=== PATIENT | male | born 1990 | race Two or more races ===

== ENCOUNTER 2021-04-08 15:29 | Inpatient (IN) | payer OTHER ==
[2021-04-08 16:40] VITALS: BMI 20.5
[2021-04-08] MEDS ORDERED: METHOCARBAMOL 500 MG TABLET PO PRN (20:23)
[2021-04-08] MEDS ORDERED: ACETAMINOPHEN 325 MG TABLET (FP) PO PRN ×2 (20:23)
[2021-04-08] MEDS ORDERED: LORazepam 1 MG TABLET PO PRN (20:23)
[2021-04-08] MEDS ORDERED: NICOTINE POLACRILEX 2 MG GUM BUC PRN (20:23)
[2021-04-08] MEDS ORDERED: MAG HYDROX/AL HYDROX/SIMETH 30 ML UNIT-DOSE CUP PO PRN (20:23)
[2021-04-08] MEDS ORDERED: MAGNESIUM CITRATE 300 ML BOTTLE PO PRN (20:23)
[2021-04-08] MEDS ORDERED: MAGNESIUM HYDROX 2400MG/30ML ORAL SUSPENSION 30 ML CUP PO PRN (20:23)
[2021-04-08] MEDS ORDERED: BISMUTH SUBSALICYLATE 524 MG/30 ML PO PRN (20:23)
[2021-04-08] MEDS ORDERED: ONDANSETRON *ODT* 4 MG TABLET SL PRN (20:23)
[2021-04-08] MEDS ORDERED: IBUPROFEN 400 MG TABLET (FP) PO PRN (20:23)
[2021-04-08] MEDS ORDERED: MENTHOL/PHENOL 1 EACH UD MM PRN (20:23)
[2021-04-08] MEDS ORDERED: cloNIDine HCL 0.1 MG TABLET PO PRN (20:29)
[2021-04-08] MEDS ORDERED: METHADONE HCL 10 MG TABLET (FOR DETOX USE ONLY) PO ONE (20:29)
[2021-04-08] MEDS: hydrOXYzine PAMOATE 25 MG CAPSULE (FP) PO SCH (21:12)
[2021-04-08] MEDS: MELATONIN 5 MG TABLETS PO SCH (22:25)
[2021-04-08] MEDS: LORazepam 2 MG TABLET PO SCH (22:25)
[2021-04-08] MEDS: THIAMINE HCL 100 MG TABLET (FP) PO SCH (22:25)
[2021-04-08] MEDS: QUEtiapine FUMARATE 50 MG TABLET PO SCH (22:25)
[2021-04-09] MEDS: LORazepam 2 MG TABLET PO SCH ×4 (06:44→22:38)
[2021-04-09] MEDS: hydrOXYzine PAMOATE 25 MG CAPSULE (FP) PO SCH ×5 (07:31→22:37)
[2021-04-09] MEDS ORDERED: METHADONE HCL 5 MG TABLET (FOR DETOX USE ONLY) ONE (09:18)
[2021-04-09] MEDS ORDERED: METHADONE HCL 10 MG TABLET (FOR DETOX USE ONLY) ONE (09:18)
[2021-04-09] MEDS ORDERED: METHADONE (DETOX) 20 MG, METHADONE (DETOX) 5 MG PO ONE (10:00)
[2021-04-09 10:53] LABS: ALBUMIN 4.1 g/dl (3.4-5.0); BLOOD UREA NITROGEN 9.2 mg/dL (7-18); CALCIUM 9.8 mg/dL (8.5-10.1)
[2021-04-09 10:56] LABS: CREATININE 0.7 mg/dL (0.55-1.3)
[2021-04-09 10:57] LABS: BILIRUBIN,TOTAL 0.7 mg/dL (0.2-1); TOT PROT 7.2 g/dl (6.4-8.2)
[2021-04-09 11:08] LABS: HEMATOCRIT 44.9 % (35.4-49); HEMOGLOBIN 14.7 GM/dL (11.7-16.9); MCH 26.9 pg (25.7-33.7); MCHC 32.8 g/dl (32.0-35.9); MEAN CELL VOLUME 82.1 fl (80-96); MEAN PLT VOLUME 8.1 fl (7.5-11.1); PLATELET COUNT 262 10^3/uL (134-434); RBC 5.47 M/mm3 (4.00-5.60); RDW 14.8 % (11.9-15.9)
[2021-04-09] MEDS: NICOTINE 14 MG/24 HOURS TOPICAL PATCH TD SCH (11:16)
[2021-04-09] MEDS: PRENATAL VITAMINS W/ FOLIC ACID TABLET (FP) PO SCH (11:16)
[2021-04-09] MEDS: MELATONIN 5 MG TABLETS PO SCH (22:37)
[2021-04-09] MEDS: THIAMINE HCL 100 MG TABLET (FP) PO SCH (22:37)
[2021-04-09] MEDS: QUEtiapine FUMARATE 50 MG TABLET PO SCH (22:37)
[2021-04-10] MEDS: LORazepam 1 MG TABLET PO SCH ×4 (06:31→23:13)
[2021-04-10] MEDS: hydrOXYzine PAMOATE 25 MG CAPSULE (FP) PO SCH ×5 (06:32→23:14)
[2021-04-10] MEDS ORDERED: METHADONE HCL 10 MG TABLET (FOR DETOX USE ONLY) PO ONE (10:00)
[2021-04-10] MEDS: PRENATAL VITAMINS W/ FOLIC ACID TABLET (FP) PO SCH (11:33)
[2021-04-10] MEDS: NICOTINE 14 MG/24 HOURS TOPICAL PATCH TD SCH (11:33)
[2021-04-10] MEDS: QUEtiapine FUMARATE 50 MG TABLET PO SCH (23:13)
[2021-04-10] MEDS: MELATONIN 5 MG TABLETS PO SCH (23:13)
[2021-04-10] MEDS: GABAPENTIN 300 MG CAPSULE PO PRN (23:13)
[2021-04-10] MEDS: traZODone HCL 50 MG TABLET (FP) PO SCH (23:13)
[2021-04-10] MEDS: THIAMINE HCL 100 MG TABLET (FP) PO SCH (23:14)
[2021-04-11] MEDS ORDERED: LORazepam 0.5 MG TABLET PO PRN
[2021-04-11] MEDS: LORazepam 0.5 MG TABLET PO SCH ×4 (06:11→22:35)
[2021-04-11] MEDS: hydrOXYzine PAMOATE 25 MG CAPSULE (FP) PO SCH ×5 (06:11→22:35)
[2021-04-11] MEDS ORDERED: METHADONE HCL 5 MG TABLET (FOR DETOX USE ONLY) ONE (09:07)
[2021-04-11] MEDS ORDERED: METHADONE HCL 10 MG TABLET (FOR DETOX USE ONLY) ONE (09:07)
[2021-04-11] MEDS ORDERED: METHADONE (DETOX) 10 MG, METHADONE (DETOX) 5 MG PO ONE (10:00)
[2021-04-11] MEDS: PRENATAL VITAMINS W/ FOLIC ACID TABLET (FP) PO SCH (10:31)
[2021-04-11] MEDS: NICOTINE 14 MG/24 HOURS TOPICAL PATCH TD SCH (10:33)
[2021-04-11] MEDS: traZODone HCL 50 MG TABLET (FP) PO SCH (22:35)
[2021-04-11] MEDS: GABAPENTIN 300 MG CAPSULE PO PRN (22:36)
[2021-04-11] MEDS: MELATONIN 5 MG TABLETS PO SCH (22:36)
[2021-04-11] MEDS: QUEtiapine FUMARATE 50 MG TABLET PO SCH (22:36)
[2021-04-11] MEDS: THIAMINE HCL 100 MG TABLET (FP) PO SCH (22:36)
[2021-04-12] MEDS ORDERED: LORazepam 0.5 MG TABLET PO ONE (05:00)
[2021-04-12] MEDS: hydrOXYzine PAMOATE 25 MG CAPSULE (FP) PO SCH (06:59)
[2021-04-12 09:05] VITALS: BP 106/65; PULSE 95; TEMP 97.3
[2021-04-12] MEDS ORDERED: METHADONE HCL 10 MG TABLET (FOR DETOX USE ONLY) PO ONE (10:00)
[2021-04-13] MEDS ORDERED: METHADONE HCL 5 MG TABLET (FOR DETOX USE ONLY) PO ONE (06:00)
== END 2021-04-12 10:19 | disposition home or self-care (01) | DRG 773 ==
LOC: YASAS 15:29 → Y3N 20:27
PROVIDERS: ADMIT Allergy & Immunology; ATTEND Allergy & Immunology
PROC: HZ2ZZZZ Detoxification Services for Substance Abuse Treatment (ICD-10-PCS; principal; 2021-04-08)
DX: F10.230 Alcohol dependence with withdrawal, uncomplicated (principal); F11.23 Opioid dependence with withdrawal; F13.230 Sedative, hypnotic or anxiolytic dependence with withdrawal, uncomplicated; F17.210 Nicotine dependence, cigarettes, uncomplicated; G62.9 Polyneuropathy, unspecified; G47.00 Insomnia, unspecified; R63.4 Abnormal weight loss; Z68.20 Body mass index [BMI] 20.0-20.9, adult; Z87.828 Personal history of other (healed) physical injury and trauma; Z94.5 Skin transplant status
CPT/HCPCS: 36415; 80053; 85027; 86780; C9803; U0003; U0005

== ENCOUNTER 2021-05-21 09:46 | Inpatient (IN) | payer OTHER ==
[2021-05-21] MEDS ORDERED: MAG HYDROX/AL HYDROX/SIMETH 30 ML UNIT-DOSE CUP PO PRN (16:13)
[2021-05-21] MEDS ORDERED: NICOTINE 10 MG CARTRIDGE (INHALER) IH PRN (16:13)
[2021-05-21] MEDS ORDERED: NICOTINE POLACRILEX 2 MG GUM BUC PRN (16:13)
[2021-05-21] MEDS ORDERED: METHOCARBAMOL 500 MG TABLET PO PRN (16:13)
[2021-05-21] MEDS ORDERED: MENTHOL/PHENOL 1 EACH UD MM PRN (16:13)
[2021-05-21] MEDS ORDERED: clonazePAM 0.5 MG ODT TABLETS SL PRN (16:13)
[2021-05-21] MEDS ORDERED: NALOXONE HCL 0.4 MG/ML VIAL IM PRN (16:13)
[2021-05-21] MEDS ORDERED: IBUPROFEN 400 MG TABLET (FP) PO PRN (16:13)
[2021-05-21] MEDS ORDERED: MAGNESIUM CITRATE 300 ML BOTTLE PO PRN (16:13)
[2021-05-21] MEDS ORDERED: MAGNESIUM HYDROX 2400MG/30ML ORAL SUSPENSION 30 ML CUP PO PRN (16:13)
[2021-05-21] MEDS ORDERED: methaDONE HCL 10 MG TABLET (FOR DETOX USE ONLY) PO ONE (16:13)
[2021-05-21] MEDS ORDERED: cloNIDine HCL 0.1 MG TABLET PO PRN (16:13)
[2021-05-21] MEDS ORDERED: ACETAMINOPHEN 325 MG TABLET (FP) PO PRN ×2 (16:13)
[2021-05-21] MEDS ORDERED: BISMUTH SUBSALICYLATE 524 MG/30 ML PO PRN (16:13)
[2021-05-21] MEDS ORDERED: diazePAM 5 MG TABLET PO PRN (16:13)
[2021-05-21] MEDS: diazePAM 5 MG TABLET PO SCH ×2 (17:56→22:39)
[2021-05-21] MEDS ORDERED: QUEtiapine FUMARATE 50 MG TABLET PO ONE (22:00)
[2021-05-21] MEDS: GABAPENTIN 300 MG CAPSULE PO PRN (22:39)
[2021-05-21] MEDS: MELATONIN 5 MG TABLETS PO SCH (22:40)
[2021-05-21] MEDS: THIAMINE HCL 100 MG TABLET (FP) PO SCH (22:40)
[2021-05-22] MEDS: diazePAM 5 MG TABLET PO SCH ×4 (07:38→22:32)
[2021-05-22] MEDS ORDERED: methaDONE HCL 10 MG TABLET (FOR DETOX USE ONLY) ONE (08:46)
[2021-05-22] MEDS ORDERED: PRENATAL VITAMINS W/ FOLIC ACID TABLET (FP) PO SCH (10:00)
[2021-05-22 10:18] LABS: CALCIUM 8.7 mg/dL (8.5-10.1)
[2021-05-22 10:20] LABS: ALBUMIN 3.6 g/dl (3.4-5.0); BLOOD UREA NITROGEN 9.7 mg/dL (7-18)
[2021-05-22 10:23] LABS: CREATININE 0.6 mg/dL (0.55-1.3); HEMATOCRIT 45.6 % (35.4-49); HEMOGLOBIN 15.2 GM/dL (11.7-16.9); MCH 27.4 pg (25.7-33.7); MCHC 33.2 g/dl (32.0-35.9); MEAN CELL VOLUME 82.3 fl (80-96); MEAN PLT VOLUME 7.9 fl (7.5-11.1); PLATELET COUNT 206 10^3/uL (134-434); RBC 5.54 M/mm3 (4.00-5.60); RDW 14.5 % (11.9-15.9); WHITE BLOOD COUNT 2.7 K/mm3 (4.0-10.0)
[2021-05-22 10:25] LABS: BILIRUBIN,TOTAL 0.4 mg/dL (0.2-1); TOT PROT 6.9 g/dl (6.4-8.2)
[2021-05-22] MEDS ORDERED: QUEtiapine FUMARATE 25 MG TABLET PO SCH (22:00)
[2021-05-22 22:06] VITALS: TEMP 96.9
[2021-05-22] MEDS: MELATONIN 5 MG TABLETS PO SCH (22:33)
[2021-05-22] MEDS: THIAMINE HCL 100 MG TABLET (FP) PO SCH (22:33)
[2021-05-22] MEDS: GABAPENTIN 300 MG CAPSULE PO PRN (22:33)
[2021-05-23 05:54] VITALS: BP 104/67; PULSE 57
[2021-05-23] MEDS ORDERED: diazePAM 5 MG TABLET PO SCH (06:00)
[2021-05-23] MEDS ORDERED: methaDONE HCL 10 MG TABLET (FOR DETOX USE ONLY) PO ONE (10:00)
[2021-05-24] MEDS ORDERED: diazePAM 5 MG TABLET PO SCH (06:00)
[2021-05-25] MEDS ORDERED: diazePAM 5 MG TABLET PO ONE (06:00)
[2021-05-25] MEDS ORDERED: methaDONE HCL 10 MG TABLET (FOR DETOX USE ONLY) PO ONE (10:00)
== END 2021-05-23 12:35 | disposition left against medical advice (07) | DRG 770 ==
LOC: YASAS 09:46 → Y3N 17:25
PROVIDERS: ADMIT Allergy & Immunology; ATTEND Allergy & Immunology
PROC: HZ2ZZZZ Detoxification Services for Substance Abuse Treatment (ICD-10-PCS; principal; 2021-05-21)
DX: F11.23 Opioid dependence with withdrawal (principal); F10.230 Alcohol dependence with withdrawal, uncomplicated; F13.230 Sedative, hypnotic or anxiolytic dependence with withdrawal, uncomplicated; F17.210 Nicotine dependence, cigarettes, uncomplicated; G47.00 Insomnia, unspecified; G62.9 Polyneuropathy, unspecified; T22.00XS Burn of unspecified degree of shoulder and upper limb, except wrist and hand, unspecified site, sequela; T31.0 Burns involving less than 10% of body surface; T79.8XXS Other early complications of trauma, sequela; W86.8XXS Exposure to other electric current, sequela; Z56.0 Unemployment, unspecified; Z59.0 Homelessness
CPT/HCPCS: 36415; 80053; 85027; 86780; C9803; U0003; U0005

== ENCOUNTER 2021-08-12 13:58 | Inpatient (IN) | payer OTHER ==
[~2021-08-12 13:58] MED LIST: PERMETHRIN 5% TOPICAL CREAM 60 GM TUBE TP ONE
[2021-08-12 14:16] VITALS: BMI 19.6
[2021-08-12] MEDS ORDERED: BISMUTH SUBSALICYLATE 524 MG/30 ML PO PRN (15:47)
[2021-08-12] MEDS ORDERED: diazePAM 5 MG TABLET PO PRN (15:47)
[2021-08-12] MEDS ORDERED: MAG HYDROX/AL HYDROX/SIMETH 30 ML UNIT-DOSE CUP PO PRN (15:47)
[2021-08-12] MEDS ORDERED: MAGNESIUM HYDROX 2400MG/30ML ORAL SUSPENSION 30 ML CUP PO PRN (15:47)
[2021-08-12] MEDS ORDERED: methaDONE HCL 10 MG TABLET (FOR DETOX USE ONLY) PO ONE (15:47)
[2021-08-12] MEDS ORDERED: IBUPROFEN 400 MG TABLET (FP) PO PRN (15:47)
[2021-08-12] MEDS ORDERED: MENTHOL/PHENOL 1 EACH UD MM PRN (15:47)
[2021-08-12] MEDS ORDERED: MAGNESIUM CITRATE 300 ML BOTTLE PO PRN (15:47)
[2021-08-12] MEDS ORDERED: ACETAMINOPHEN 325 MG TABLET (FP) PO PRN ×2 (15:47)
[2021-08-12] MEDS ORDERED: cloNIDine HCL 0.1 MG TABLET PO PRN (15:47)
[2021-08-12] MEDS ORDERED: NICOTINE 10 MG CARTRIDGE (INHALER) IH PRN (15:47)
[2021-08-12] MEDS ORDERED: PERMETHRIN 5% TOPICAL CREAM 60 GM TUBE TP ONE (16:14)
[2021-08-12] MEDS ORDERED: PERMETHRIN 5% TOPICAL CREAM 60 GM TUBE ONE (16:40)
[2021-08-12] MEDS ORDERED: PERMETHRIN (NIX CREAM SCALP RINSE) 59 ML 1% BOTTLE TP ONE (16:40)
[2021-08-12] MEDS: diazePAM 5 MG TABLET PO SCH ×3 (19:11→22:39)
[2021-08-12] MEDS: THIAMINE HCL 100 MG TABLET (FP) PO SCH (22:24)
[2021-08-12] MEDS: MELATONIN 5 MG TABLETS PO SCH ×2 (22:38→23:46)
[2021-08-13] MEDS: diazePAM 5 MG TABLET PO SCH ×4 (06:06→22:35)
[2021-08-13] MEDS ORDERED: methaDONE HCL 10 MG TABLET (FOR DETOX USE ONLY) ONE (08:43)
[2021-08-13] MEDS: PRENATAL VITAMINS W/ FOLIC ACID TABLET (FP) PO SCH (10:49)
[2021-08-13 11:33] LABS: HEMATOCRIT 45.3 % (35.4-49); HEMOGLOBIN 14.9 GM/dL (11.7-16.9); MCH 27.2 pg (25.7-33.7); MCHC 32.8 g/dl (32.0-35.9); MEAN PLT VOLUME 7.4 fl (7.5-11.1); PLATELET COUNT 292 10^3/uL (134-434); RBC 5.47 M/mm3 (4.00-5.60); RDW 14.6 % (11.9-15.9); WHITE BLOOD COUNT 3.2 K/mm3 (4.0-10.0)
[2021-08-13 12:08] LABS: BLOOD UREA NITROGEN 10.8 mg/dL (7-18); CALCIUM 8.9 mg/dL (8.5-10.1)
[2021-08-13 12:09] LABS: ALBUMIN 3.2 g/dl (3.4-5.0)
[2021-08-13 12:12] LABS: CREATININE 0.7 mg/dL (0.55-1.3)
[2021-08-13 12:13] LABS: BILIRUBIN,TOTAL 0.2 mg/dL (0.2-1); TOT PROT 6.5 g/dl (6.4-8.2)
[2021-08-13] MEDS: THIAMINE HCL 100 MG TABLET (FP) PO SCH (22:35)
[2021-08-13] MEDS: QUEtiapine FUMARATE 50 MG TABLET PO SCH (22:35)
[2021-08-13 23:33] VITALS: PULSE 70
[2021-08-14] MEDS: diazePAM 5 MG TABLET PO SCH ×2 (06:39→13:11)
[2021-08-14] MEDS ORDERED: methaDONE HCL 10 MG TABLET (FOR DETOX USE ONLY) PO ONE (10:00)
[2021-08-14] MEDS: PRENATAL VITAMINS W/ FOLIC ACID TABLET (FP) PO SCH (10:21)
[2021-08-14] MEDS: QUEtiapine FUMARATE 50 MG TABLET PO SCH (10:21)
[2021-08-14 10:53] VITALS: BP 101/63; TEMP 97
[2021-08-15] MEDS ORDERED: diazePAM 5 MG TABLET PO SCH (06:00)
[2021-08-16] MEDS ORDERED: diazePAM 5 MG TABLET PO ONE (06:00)
[2021-08-16] MEDS ORDERED: methaDONE HCL 10 MG TABLET (FOR DETOX USE ONLY) PO ONE (10:00)
== END 2021-08-14 14:25 | disposition left against medical advice (07) | DRG 770 ==
LOC: YASAS 13:58 → Y6N 18:17
PROVIDERS: ADMIT Allergy & Immunology; ATTEND Allergy & Immunology
DX: F11.23 Opioid dependence with withdrawal (principal); F10.230 Alcohol dependence with withdrawal, uncomplicated; F17.210 Nicotine dependence, cigarettes, uncomplicated; F41.9 Anxiety disorder, unspecified; F41.0 Panic disorder [episodic paroxysmal anxiety]; F19.24 Other psychoactive substance dependence with psychoactive substance-induced mood disorder; G47.00 Insomnia, unspecified; B85.1 Pediculosis due to Pediculus humanus corporis; D72.819 Decreased white blood cell count, unspecified; R73.9 Hyperglycemia, unspecified; Z87.828 Personal history of other (healed) physical injury and trauma; Z59.01 Sheltered homelessness; Z56.0 Unemployment, unspecified; Z94.5 Skin transplant status
CPT/HCPCS: 36415; 80053; 85027; 86780; C9803; U0003; U0005

== ENCOUNTER 2021-10-25 15:12 | Inpatient (IN) | payer OTHER ==
[2021-10-25] MEDS ORDERED: ACETAMINOPHEN 325 MG TABLET (FP) PO PRN ×2 (15:29)
[2021-10-25] MEDS ORDERED: BISMUTH SUBSALICYLATE 524 MG/30 ML PO PRN (15:29)
[2021-10-25] MEDS ORDERED: MAGNESIUM CITRATE 300 ML BOTTLE PO PRN (15:29)
[2021-10-25] MEDS ORDERED: METHOCARBAMOL 500 MG TABLET PO PRN (15:29)
[2021-10-25] MEDS ORDERED: MAGNESIUM HYDROX 2400MG/30ML ORAL SUSPENSION 30 ML CUP PO PRN (15:29)
[2021-10-25] MEDS ORDERED: MAG HYDROX/AL HYDROX/SIMETH 30 ML UNIT-DOSE CUP PO PRN (15:29)
[2021-10-25] MEDS ORDERED: MENTHOL/PHENOL 1 EACH UD MM PRN (15:29)
[2021-10-25] MEDS ORDERED: NICOTINE 10 MG CARTRIDGE (INHALER) IH PRN (15:29)
[2021-10-25] MEDS ORDERED: chlordiazePOXIDE HCL 25 MG CAPSULE PO PRN (15:29)
[2021-10-25] MEDS ORDERED: IBUPROFEN 400 MG TABLET (FP) PO PRN (15:29)
[2021-10-25] MEDS ORDERED: ONDANSETRON *ODT* 4 MG TABLET SL PRN (15:29)
[2021-10-25 18:54] VITALS: BMI 19.2
[2021-10-25] MEDS ORDERED: methaDONE HCL 10 MG TABLET PO ONE (20:00)
[2021-10-25] MEDS: PRENATAL VITAMINS W/ FOLIC ACID TABLET (FP) PO SCH (20:45)
[2021-10-25] MEDS: hydrOXYzine PAMOATE 25 MG CAPSULE (FP) PO SCH ×2 (20:46→22:11)
[2021-10-25] MEDS: chlordiazePOXIDE HCL 25 MG CAPSULE PO SCH ×2 (20:47→22:11)
[2021-10-25] MEDS: MELATONIN 5 MG TABLETS PO SCH (22:11)
[2021-10-25] MEDS: THIAMINE HCL 100 MG TABLET (FP) PO SCH (22:11)
[2021-10-26] MEDS: hydrOXYzine PAMOATE 25 MG CAPSULE (FP) PO SCH ×5 (06:56→22:39)
[2021-10-26] MEDS: chlordiazePOXIDE HCL 25 MG CAPSULE PO SCH ×4 (06:57→22:39)
[2021-10-26] MEDS: PRENATAL VITAMINS W/ FOLIC ACID TABLET (FP) PO SCH (10:44)
[2021-10-26 11:58] LABS: CALCIUM 8.8 mg/dL (8.5-10.1)
[2021-10-26 11:59] LABS: ALBUMIN 3.6 g/dl (3.4-5.0); BLOOD UREA NITROGEN 10.6 mg/dL (7-18)
[2021-10-26 12:02] LABS: CREATININE 0.6 mg/dL (0.55-1.3)
[2021-10-26 12:07] LABS: BILIRUBIN,TOTAL 0.4 mg/dL (0.2-1); TOT PROT 6.7 g/dl (6.4-8.2)
[2021-10-26 12:12] LABS: HEMATOCRIT 47.5 % (35.4-49); HEMOGLOBIN 14.8 GM/dL (11.7-16.9); MCH 26.9 pg (25.7-33.7); MCHC 31.2 g/dl (32.0-35.9); MEAN CELL VOLUME 86.3 fl (80-96); MEAN PLT VOLUME 8.1 fl (7.5-11.1); PLATELET COUNT 231 10^3/uL (134-434); WHITE BLOOD COUNT 3.8 K/mm3 (4.0-10.0)
[2021-10-26] MEDS ORDERED: methaDONE HCL 10 MG TABLET PO SCH (14:45)
[2021-10-26] MEDS ORDERED: methaDONE HCL 40 MG DISPERSABLE TABLET ONE (15:18)
[2021-10-26] MEDS ORDERED: methaDONE HCL 10 MG TABLET ONE (15:18)
[2021-10-26] MEDS ORDERED: QUEtiapine FUMARATE 100 MG TABLET (FP) PO SCH (22:00)
[2021-10-26] MEDS: MELATONIN 5 MG TABLETS PO SCH (22:39)
[2021-10-26] MEDS: THIAMINE HCL 100 MG TABLET (FP) PO SCH (22:39)
[2021-10-27] MEDS ORDERED: methaDONE HCL 10 MG TABLET ONE (03:30)
[2021-10-27] MEDS ORDERED: methaDONE HCL 40 MG DISPERSABLE TABLET ONE (03:30)
[2021-10-27] MEDS: hydrOXYzine PAMOATE 25 MG CAPSULE (FP) PO SCH ×2 (06:55→10:39)
[2021-10-27] MEDS: chlordiazePOXIDE HCL 25 MG CAPSULE PO SCH ×2 (07:01→10:41)
[2021-10-27 07:30] VITALS: TEMP 96.8
[2021-10-27] MEDS: PRENATAL VITAMINS W/ FOLIC ACID TABLET (FP) PO SCH (10:39)
[2021-10-27 10:43] VITALS: BP 106/76; PULSE 96
[2021-10-27] MEDS ORDERED: traZODone HCL 50 MG TABLET (FP) PO SCH (22:00)
[2021-10-28] MEDS ORDERED: chlordiazePOXIDE HCL 10 MG CAPSULE PO PRN
[2021-10-28] MEDS ORDERED: chlordiazePOXIDE HCL 10 MG CAPSULE PO SCH (05:00)
[2021-10-29] MEDS ORDERED: chlordiazePOXIDE HCL 10 MG CAPSULE PO SCH (05:00)
[2021-10-30] MEDS ORDERED: chlordiazePOXIDE HCL 10 MG CAPSULE PO ONE (05:00)
== END 2021-10-27 14:38 | disposition left against medical advice (07) | DRG 770 ==
LOC: YASAS 15:12 → Y3N 19:20
PROVIDERS: ADMIT Allergy & Immunology; ATTEND Allergy & Immunology
PROC: HZ2ZZZZ Detoxification Services for Substance Abuse Treatment (ICD-10-PCS; principal; 2021-10-25)
DX: F10.230 Alcohol dependence with withdrawal, uncomplicated (principal); F11.20 Opioid dependence, uncomplicated; F17.213 Nicotine dependence, cigarettes, with withdrawal; F19.24 Other psychoactive substance dependence with psychoactive substance-induced mood disorder; F41.9 Anxiety disorder, unspecified; F43.10 Post-traumatic stress disorder, unspecified; G47.00 Insomnia, unspecified; B85.1 Pediculosis due to Pediculus humanus corporis; R73.9 Hyperglycemia, unspecified; Z94.5 Skin transplant status; Z59.01 Sheltered homelessness; Z56.0 Unemployment, unspecified
CPT/HCPCS: 36415; 80053; 85027; 86780; C9803-CS; U0003; U0005

== ENCOUNTER 2021-12-06 13:24 | Inpatient (IN) | payer OTHER ==
[2021-12-06] MEDS ORDERED: MAGNESIUM CITRATE 300 ML BOTTLE PO PRN (14:56)
[2021-12-06] MEDS ORDERED: MAGNESIUM HYDROX 2400MG/30ML ORAL SUSPENSION 30 ML CUP PO PRN (14:56)
[2021-12-06] MEDS ORDERED: ONDANSETRON *ODT* 4 MG TABLET SL PRN (14:56)
[2021-12-06] MEDS ORDERED: MAG HYDROX/AL HYDROX/SIMETH 30 ML UNIT-DOSE CUP PO PRN (14:56)
[2021-12-06] MEDS ORDERED: BISMUTH SUBSALICYLATE 262 MG/15 ML BTL PO PRN (14:56)
[2021-12-06] MEDS ORDERED: NICOTINE 10 MG CARTRIDGE (INHALER) IH PRN (14:56)
[2021-12-06] MEDS ORDERED: MENTHOL/PHENOL 1 EACH UD MM PRN (14:56)
[2021-12-06] MEDS ORDERED: LOPERAMIDE HCL 2 MG CAPSULE PO PRN (14:56)
[2021-12-06] MEDS ORDERED: ACETAMINOPHEN 325 MG TABLET (FP) PO PRN ×2 (14:56)
[2021-12-06] MEDS ORDERED: IBUPROFEN 400 MG TABLET (FP) PO PRN (14:56)
[2021-12-06 15:50] VITALS: BMI 19.2
[2021-12-06] MEDS: hydrOXYzine PAMOATE 25 MG CAPSULE (FP) PO SCH ×2 (18:49→22:43)
[2021-12-06] MEDS: PRENATAL VITAMINS W/ FOLIC ACID TABLET (FP) PO SCH (18:50)
[2021-12-06] MEDS: NICOTINE 14 MG/24 HOURS TOPICAL PATCH TD SCH (18:51)
[2021-12-06] MEDS: METHOCARBAMOL 500 MG TABLET PO PRN (22:42)
[2021-12-06] MEDS: MELATONIN 5 MG TABLETS PO SCH (22:42)
[2021-12-06] MEDS: THIAMINE HCL 100 MG TABLET (FP) PO SCH (22:42)
[2021-12-07] MEDS: hydrOXYzine PAMOATE 25 MG CAPSULE (FP) PO SCH ×6 (06:06→22:37)
[2021-12-07] MEDS: METHOCARBAMOL 500 MG TABLET PO PRN ×2 (07:31→22:37)
[2021-12-07] MEDS ORDERED: methaDONE HCL 10 MG TABLET PO SCH (07:45)
[2021-12-07] MEDS ORDERED: methaDONE HCL 10 MG TABLET ONE (07:56)
[2021-12-07] MEDS ORDERED: methaDONE HCL 40 MG DISPERSABLE TABLET ONE (07:56)
[2021-12-07] MEDS: methaDONE 40 MG, methaDONE 10 MG PO SCH (07:58)
[2021-12-07] MEDS ORDERED: chlordiazePOXIDE HCL 25 MG CAPSULE PO PRN (09:25)
[2021-12-07] MEDS: chlordiazePOXIDE HCL 25 MG CAPSULE PO SCH ×3 (11:01→22:36)
[2021-12-07] MEDS: NICOTINE 14 MG/24 HOURS TOPICAL PATCH TD SCH (11:01)
[2021-12-07] MEDS: PRENATAL VITAMINS W/ FOLIC ACID TABLET (FP) PO SCH (11:01)
[2021-12-07 12:57] LABS: ALBUMIN 3.4 g/dl (3.4-5.0)
[2021-12-07 12:58] LABS: CALCIUM 9.3 mg/dL (8.5-10.1); HEMATOCRIT 44.1 % (35.4-49); HEMOGLOBIN 13.9 GM/dL (11.7-16.9); MCH 27.4 pg (25.7-33.7); MCHC 31.6 g/dl (32.0-35.9); MEAN CELL VOLUME 86.6 fl (80-96); MEAN PLT VOLUME 8.4 fl (7.5-11.1); PLATELET COUNT 192 10^3/uL (134-434); RBC 5.09 M/mm3 (4.00-5.60); RDW 13.9 % (11.9-15.9); WHITE BLOOD COUNT 2.9 K/mm3 (4.0-10.0)
[2021-12-07 13:00] LABS: CREATININE 0.6 mg/dL (0.55-1.3)
[2021-12-07 13:01] LABS: BILIRUBIN,TOTAL 0.3 mg/dL (0.2-1); TOT PROT 6.3 g/dl (6.4-8.2)
[2021-12-07] MEDS: MELATONIN 5 MG TABLETS PO SCH (22:37)
[2021-12-07] MEDS: THIAMINE HCL 100 MG TABLET (FP) PO SCH (22:37)
[2021-12-08] MEDS ORDERED: methaDONE HCL 10 MG TABLET ONE (04:31)
[2021-12-08] MEDS ORDERED: methaDONE HCL 40 MG DISPERSABLE TABLET ONE (04:31)
[2021-12-08] MEDS: hydrOXYzine PAMOATE 25 MG CAPSULE (FP) PO SCH ×2 (06:38→12:16)
[2021-12-08] MEDS: chlordiazePOXIDE HCL 25 MG CAPSULE PO SCH ×2 (06:38→12:15)
[2021-12-08] MEDS: methaDONE 40 MG, methaDONE 10 MG PO SCH (06:38)
[2021-12-08 08:59] VITALS: BP 96/59; PULSE 57; TEMP 97
[2021-12-08] MEDS: NICOTINE 14 MG/24 HOURS TOPICAL PATCH TD SCH (12:16)
[2021-12-08] MEDS: PRENATAL VITAMINS W/ FOLIC ACID TABLET (FP) PO SCH (12:16)
[2021-12-09] MEDS ORDERED: chlordiazePOXIDE HCL 25 MG CAPSULE PO SCH (05:00)
[2021-12-10] MEDS ORDERED: chlordiazePOXIDE HCL 10 MG CAPSULE PO PRN
[2021-12-10] MEDS ORDERED: chlordiazePOXIDE HCL 10 MG CAPSULE PO SCH (05:00)
[2021-12-11] MEDS ORDERED: chlordiazePOXIDE HCL 10 MG CAPSULE PO SCH (05:00)
[2021-12-12] MEDS ORDERED: chlordiazePOXIDE HCL 10 MG CAPSULE PO ONE (05:00)
== END 2021-12-08 11:43 | disposition home or self-care (01) | DRG 773 ==
LOC: YASAS 13:24 → Y3N 17:41
PROVIDERS: ADMIT Allergy & Immunology; ATTEND Allergy & Immunology
PROC: HZ2ZZZZ Detoxification Services for Substance Abuse Treatment (ICD-10-PCS; principal; 2021-12-06)
DX: F11.23 Opioid dependence with withdrawal (principal); F10.230 Alcohol dependence with withdrawal, uncomplicated; F17.210 Nicotine dependence, cigarettes, uncomplicated; Z86.69 Personal history of other diseases of the nervous system and sense organs; Z59.00 Homelessness unspecified; Z91.018 Allergy to other foods
CPT/HCPCS: 36415; 80053; 85027; 86780; C9803; U0003; U0005

== ENCOUNTER 2021-12-26 13:02 | Inpatient (IN) | payer OTHER ==
[2021-12-26] MEDS ORDERED: MAGNESIUM CITRATE 300 ML BOTTLE PO PRN (15:03)
[2021-12-26] MEDS ORDERED: chlordiazePOXIDE HCL 25 MG CAPSULE PO PRN (15:03)
[2021-12-26] MEDS ORDERED: METHOCARBAMOL 500 MG TABLET PO PRN (15:03)
[2021-12-26] MEDS ORDERED: MAG HYDROX/AL HYDROX/SIMETH 30 ML UNIT-DOSE CUP PO PRN (15:03)
[2021-12-26] MEDS ORDERED: LOPERAMIDE HCL 2 MG CAPSULE PO PRN (15:03)
[2021-12-26] MEDS ORDERED: BISMUTH SUBSALICYLATE 524 MG/30 ML PO PRN (15:03)
[2021-12-26] MEDS ORDERED: ONDANSETRON *ODT* 4 MG TABLET SL PRN (15:03)
[2021-12-26] MEDS ORDERED: ACETAMINOPHEN 325 MG TABLET (FP) PO PRN ×2 (15:03)
[2021-12-26] MEDS ORDERED: IBUPROFEN 400 MG TABLET (FP) PO PRN (15:03)
[2021-12-26] MEDS ORDERED: MENTHOL/PHENOL 1 EACH UD MM PRN (15:03)
[2021-12-26] MEDS ORDERED: MAGNESIUM HYDROX 2400MG/30ML ORAL SUSPENSION 30 ML CUP PO PRN (15:03)
[2021-12-26] MEDS ORDERED: NICOTINE 10 MG CARTRIDGE (INHALER) IH PRN (15:03)
[2021-12-26] MEDS ORDERED: NALOXONE (NARCAN) HCL 4 MG/0.1 ML SPRAY NS PRN (15:15)
[2021-12-26 15:44] VITALS: BMI 19.8
[2021-12-26] MEDS: hydrOXYzine PAMOATE 25 MG CAPSULE (FP) PO SCH ×2 (17:44→22:23)
[2021-12-26] MEDS ORDERED: THIAMINE HCL 100 MG TABLET (FP) PO SCH (22:00)
[2021-12-26] MEDS ORDERED: MELATONIN 5 MG TABLETS PO SCH (22:00)
[2021-12-26] MEDS: chlordiazePOXIDE HCL 25 MG CAPSULE PO SCH (22:23)
[2021-12-27] MEDS: chlordiazePOXIDE HCL 25 MG CAPSULE PO SCH ×2 (06:17→10:25)
[2021-12-27] MEDS: hydrOXYzine PAMOATE 25 MG CAPSULE (FP) PO SCH ×2 (06:18→10:24)
[2021-12-27] MEDS ORDERED: methaDONE HCL 10 MG TABLET PO ONE (09:13)
[2021-12-27] MEDS ORDERED: methaDONE 40 MG, methaDONE 20 MG PO ONE (09:26)
[2021-12-27 09:29] VITALS: BP 105/65; TEMP 97.3
[2021-12-27 09:31] VITALS: PULSE 66
[2021-12-27] MEDS ORDERED: PRENATAL VITAMINS W/ FOLIC ACID TABLET (FP) PO SCH (10:00)
[2021-12-27] MEDS ORDERED: methaDONE HCL 40 MG DISPERSABLE TABLET ONE (10:22)
[2021-12-27] MEDS ORDERED: methaDONE HCL 10 MG TABLET ONE (10:22)
[2021-12-27 10:46] LABS: HEMATOCRIT 44.7 % (35.4-49); HEMOGLOBIN 14.2 GM/dL (11.7-16.9); MCH 27.4 pg (25.7-33.7); MCHC 31.7 g/dl (32.0-35.9); MEAN CELL VOLUME 86.3 fl (80-96); MEAN PLT VOLUME 8.1 fl (7.5-11.1); PLATELET COUNT 239 10^3/uL (134-434); RBC 5.19 M/mm3 (4.00-5.60); RDW 13.6 % (11.9-15.9); WHITE BLOOD COUNT 2.8 K/mm3 (4.0-10.0)
[2021-12-27 11:18] LABS: ALBUMIN 3.6 g/dl (3.4-5.0); CALCIUM 9.3 mg/dL (8.5-10.1)
[2021-12-27 11:21] LABS: CREATININE 0.7 mg/dL (0.55-1.3)
[2021-12-27 11:22] LABS: TOT PROT 6.5 g/dl (6.4-8.2)
[2021-12-27 11:23] LABS: BILIRUBIN,TOTAL 0.3 mg/dL (0.2-1)
[2021-12-27] MEDS ORDERED: QUEtiapine FUMARATE 100 MG TABLET (FP) PO PRN (11:41)
[2021-12-28] MEDS ORDERED: chlordiazePOXIDE HCL 25 MG CAPSULE PO SCH (05:00)
[2021-12-28] MEDS ORDERED: methaDONE 40 MG, methaDONE 20 MG PO SCH (06:00)
[2021-12-28] MEDS ORDERED: methaDONE HCL 10 MG TABLET PO SCH (06:00)
[2021-12-28 14:07] LABS: SARS-CoV-2 NAA Not Detected (Not Detected)
[2021-12-29] MEDS ORDERED: chlordiazePOXIDE HCL 10 MG CAPSULE PO PRN
[2021-12-29] MEDS ORDERED: chlordiazePOXIDE HCL 10 MG CAPSULE PO SCH (05:00)
[2021-12-30] MEDS ORDERED: chlordiazePOXIDE HCL 10 MG CAPSULE PO SCH (05:00)
[2021-12-31] MEDS ORDERED: chlordiazePOXIDE HCL 10 MG CAPSULE PO ONE (05:00)
== END 2021-12-27 12:40 | disposition left against medical advice (07) | DRG 770 ==
LOC: YASAS 13:02 → Y6N 16:28
PROVIDERS: ADMIT Allergy & Immunology; ATTEND Allergy & Immunology
PROC: HZ2ZZZZ Detoxification Services for Substance Abuse Treatment (ICD-10-PCS; principal; 2021-12-26)
DX: F10.230 Alcohol dependence with withdrawal, uncomplicated (principal); F11.20 Opioid dependence, uncomplicated; F12.20 Cannabis dependence, uncomplicated; F17.213 Nicotine dependence, cigarettes, with withdrawal; Z87.2 Personal history of diseases of the skin and subcutaneous tissue
CPT/HCPCS: 36415; 80053; 85027; 86780; 87811; C9803; U0003; U0005

== ENCOUNTER 2023-03-01 11:57 | Inpatient (IN) | payer OTHER ==
[2023-03-01 13:20] VITALS: BMI 23.4
[2023-03-01] MEDS ORDERED: IBUPROFEN 400 MG TABLET (FP) PO PRN (17:21)
[2023-03-01] MEDS ORDERED: BISMUTH SUBSALICYLATE 524 MG/30 ML PO PRN (17:21)
[2023-03-01] MEDS ORDERED: ONDANSETRON *ODT* 4 MG TABLET SL PRN (17:21)
[2023-03-01] MEDS ORDERED: NICOTINE 10 MG CARTRIDGE (INHALER) IH PRN (17:21)
[2023-03-01] MEDS ORDERED: MAG HYDROX/AL HYDROX/SIMETH 30 ML UNIT-DOSE CUP PO PRN (17:21)
[2023-03-01] MEDS ORDERED: BENZOCAINE/MENTHOL (CHLORASEPTIC ) LOZENGE MM PRN (17:21)
[2023-03-01] MEDS ORDERED: DICYCLOMINE HCL 10 MG CAPSULE PO PRN (17:21)
[2023-03-01] MEDS ORDERED: BENZONATATE 200 MG CAPSULE PO PRN (17:21)
[2023-03-01] MEDS ORDERED: guaiFENesin 600 MG TABLET.ER (FP) PO PRN (17:21)
[2023-03-01] MEDS ORDERED: IBUPROFEN 600 MG TABLET (FP) PO PRN (17:21)
[2023-03-01] MEDS ORDERED: POLYETHYLENE GLYCOL (HEALTHYLAX) 3350 17 GM PACKET PO PRN (17:21)
[2023-03-01] MEDS ORDERED: METHOCARBAMOL 500 MG TABLET PO PRN (17:21)
[2023-03-01] MEDS ORDERED: hydrOXYzine PAMOATE 25 MG CAPSULE (FP) PO PRN (17:21)
[2023-03-01] MEDS ORDERED: MAGNESIUM HYDROX 2400MG/30ML ORAL SUSPENSION 30 ML CUP PO PRN (17:21)
[2023-03-01] MEDS ORDERED: NALOXONE HCL 0.4 MG/ML VIAL IM PRN (17:21)
[2023-03-01] MEDS ORDERED: ACETAMINOPHEN 325 MG TABLET (FP) PO PRN (17:21)
[2023-03-01] MEDS ORDERED: diazePAM 5 MG TABLET PO PRN (17:21)
[2023-03-01] MEDS ORDERED: NALOXONE HCL (KLOXXADO) 8 MG SPRAY NS PRN (17:21)
[2023-03-01] MEDS ORDERED: LOPERAMIDE HCL 2 MG CAPSULE PO PRN (17:21)
[2023-03-01] MEDS ORDERED: NICOTINE POLACRILEX 2 MG GUM BUC PRN (18:38)
[2023-03-01 21:47] VITALS: RESP 18
[2023-03-01] MEDS ORDERED: MELATONIN 5 MG TABLETS PO SCH (22:00)
[2023-03-01] MEDS ORDERED: THIAMINE HCL 100 MG TABLET (FP) PO SCH (22:00)
[2023-03-01] MEDS ORDERED: QUEtiapine FUMARATE 100 MG TABLET (FP) PO SCH (22:00)
[2023-03-01] MEDS: diazePAM 5 MG TABLET PO SCH (23:04)
[2023-03-02] MEDS: diazePAM 5 MG TABLET PO SCH ×2 (05:47→10:20)
[2023-03-02 09:20] VITALS: BP 136/89
[2023-03-02] MEDS ORDERED: PRENATAL VITAMINS W/ FOLIC ACID TABLET (FP) PO SCH (10:00)
[2023-03-02] MEDS ORDERED: methaDONE HCL 40 MG DISPERSABLE TABLET PO SCH (10:00)
[2023-03-02] MEDS ORDERED: NICOTINE 14 MG/24 HOURS TOPICAL PATCH TD SCH (10:00)
[2023-03-02] MEDS ORDERED: QUEtiapine FUMARATE 50 MG TABLET PO PRN (10:28)
[2023-03-02 10:58] LABS: HEMATOCRIT 41.8 % (35.4-49); HEMOGLOBIN 14.1 GM/dL (11.7-16.9); MCH 27.8 pg (25.7-33.7); MCHC 33.8 g/dl (32.0-35.9); MEAN CELL VOLUME 82.2 fl (80-96); MEAN PLT VOLUME 8.4 fl (7.5-11.1); PLATELET COUNT 215 10^3/uL (134-434); RBC 5.08 M/mm3 (4.00-5.60); RDW 13.8 % (11.9-15.9); WHITE BLOOD COUNT 4.2 K/mm3 (4.0-10.0)
[2023-03-02 11:01] LABS: POTASSIUM 4.1 mmol/L (3.5-5.1)
[2023-03-02 11:07] LABS: CALCIUM 8.7 mg/dL (8.5-10.1)
[2023-03-02 11:08] LABS: ALBUMIN 3.1 g/dl (3.4-5.0); BLOOD UREA NITROGEN 8.6 mg/dL (7-18)
[2023-03-02 11:11] LABS: BILIRUBIN,TOTAL 0.6 mg/dL (0.2-1); CREATININE 0.6 mg/dL (0.55-1.3); TOT PROT 6.1 g/dl (6.4-8.2)
[2023-03-02 13:08] VITALS: PULSE 60; TEMP 97.5
[2023-03-02] MEDS ORDERED: QUEtiapine FUMARATE 50 MG TABLET PO SCH (22:00)
[2023-03-02] MEDS ORDERED: MIRTAZAPINE 15 MG TABLET (FP) PO SCH (22:00)
[2023-03-03] MEDS ORDERED: diazePAM 5 MG TABLET PO SCH (06:00)
[2023-03-04] MEDS ORDERED: diazePAM 5 MG TABLET PO SCH (06:00)
[2023-03-05] MEDS ORDERED: diazePAM 5 MG TABLET PO ONE (06:00)
== END 2023-03-02 17:20 | disposition left against medical advice (07) | DRG 770 ==
LOC: YASAS 11:57 → Y6N 17:19
PROVIDERS: ADMIT Allergy & Immunology; ATTEND Surgery
PROC: HZ2ZZZZ Detoxification Services for Substance Abuse Treatment (ICD-10-PCS; principal; 2023-03-01)
DX: F10.230 Alcohol dependence with withdrawal, uncomplicated (principal); F11.20 Opioid dependence, uncomplicated; F12.20 Cannabis dependence, uncomplicated; F17.210 Nicotine dependence, cigarettes, uncomplicated; F19.282 Other psychoactive substance dependence with psychoactive substance-induced sleep disorder; F19.24 Other psychoactive substance dependence with psychoactive substance-induced mood disorder; F31.9 Bipolar disorder, unspecified; F41.9 Anxiety disorder, unspecified; F43.10 Post-traumatic stress disorder, unspecified; Z87.828 Personal history of other (healed) physical injury and trauma
CPT/HCPCS: 36415; 80053; 85027; 86780; 87811; C9803-CS; U0003; U0005